=== PATIENT | female | born 1990 | race Caucasian/White ===

== ENCOUNTER 2018-10-30 20:11 | Inpatient (IN) ==
[2018-10-30] MEDS ORDERED: OXYTOCIN 30 UNITS/500 ML BAG IV PRN ×2 (21:06)
[2018-10-30] MEDS ORDERED: LACTATED RINGER'S 1,000 ML IV PRN ×2 (21:06)
[2018-10-30 21:25] LABS: Hemoglobin 11.9 g/dL (12.0-16.0); Mean Corpuscular Volume 98.1 fL (80-100); Mean Platelet Volume 12.2 fL (7.4-10.4); Platelet Count 192 K/uL (130-400); RDW Coefficient of Variation 12.9 % (11.5-14.5); RDW Standard Deviation 46.8 fL (36.4-46.3); Red Blood Count 3.67 M/uL (4.2-5.4); White Blood Count 7.54 K/uL (4.8-10.8)
[2018-10-30 21:46] LABS: Mean Corpuscular Hgb Conc 33.1 g/dL (32-36)
--- NOTE | 2018-10-30 22:32 | History and Physical Report ---
DATE OF ADMISSION: 10/30/2018 HISTORY OF PRESENT ILLNESS: Patient is a 28-year-old 1, para 0, due date 10/26/2018, making her 40 weeks and 4 today, who presented to labor and delivery with spontaneous rupture of membranes at 1900 hours. On arrival to labor and delivery, she had no shortness of breath, no chills, no fever. Patient is grossly ruptured, and amniotic fluid is clear. Bedside ultrasound shows cephalic presentation. She was examined and found to be 3 cm, 50% effaced, and -2. course has been unremarkable except for elevated amniotic fluid index of 28.6 on 10/27/2018. LABS: Blood type is A positive, antibody negative, rubella immune, GBS negative. PAST MEDICAL HISTORY: None. PAST SURGICAL HISTORY: Patient had cholecystectomy in the past. SOCIAL HISTORY: Patient denies tobacco, drug, or alcohol use. FAMILY HISTORY: Noncontributory. PHYSICAL EXAMINATION: GENERAL: Well-developed and well-nourished white female with spontaneous rupture of membrane. HEART: S1 and S2, regular rhythm and rate. RESPIRATORY: Lungs are clear to auscultation bilaterally. GASTROINTESTINAL: Abdomen is gravid. Bedside ultrasound shows cephalic presentation. PELVIC: Patient is 2-3 cm, 50% effaced, and -2. EXTREMITIES: No cyanosis, clubbing, edema. ASSESSMENT AND PLAN: A 28-year-old 1, para 0 at 40 and 4, term premature rupture of membranes. Patient has been admitted, anticipate vaginal delivery.
[2018-10-30] MEDS ORDERED: ePHEDrine sulfate 50 MG/ML AMP ONE (22:59)
[2018-10-30] MEDS ORDERED: BUPIVACAINE 0.25% 30 ML VIAL ONE (22:59)
[2018-10-30] MEDS ORDERED: fentaNYL citrate 100 MCG/2 ML VIAL ONE (23:00)
[2018-10-30] MEDS ORDERED: fentaNYL 2MCG/ML ROPIV 1.25MG/ML 100 ML BAG EPI ONE (23:01)
--- NOTE | 2018-10-30 23:37 | Anesthesiology Consultation ---
Date of Service October 30, 2018 Assessment & Plan Chart Review Chart Review: Acceptable Risk for Labor Epidural Consults Requested none ASA ASA2 Proposed Anesthesia Anesthesia Type: Labor Epidural Risk / Benefits Reviewed With: PT / POA / Parent / Guardian, Accepts Plan and Informed Consent Obtained NPO Date Last Intake of Fluids: 10/30/18 Time Last Intake of Fluids: 22:45 Date Last Intake of Solids: 10/30/18 Time Last Intake of Solids: 18:30 History Height/Weight Height: 1.6 m Weight: 69.039 kg Allergies Allergy/AdvReac Type Severity Reaction Status Date / Time No Known Allergies Allergy Unverified 10/30/18 21:13 Medications Home Medications Medication Instructions Recorded Confirmed Last Taken vit no.[id number] 1 tab PO DAILY 10/30/18 10/30/18 10/29/18 18:00 [ Vitamin] Active Medications Generic Name Dose Route Start Last Admin Trade Name Freq PRN Reason Stop Dose Admin Lactated Ringer's 1,000 mls @ 999 mls/hr 10/30/18 21:06 10/30/18 22:55 Lr IV 11/29/18 21:05 999 mls/hr .Q1H1M PRN Administration (Pre-Anesthesia) Oxytocin 30 units in 500 mls @ 2 mls/hr 10/30/18 21:06 10/30/18 23:28 Pitocin IV 11/29/18 21:05 0.12 units/hr .Q24H PRN 2 mls/hr Labor Induction/Augmentation Administration Protocol 0.12 UNITS/HR Past Medical History Medical History GERD (gastroesophageal reflux disease) Past Surgical History Surgical History S/P cholecystectomy Past Anesthesia History No Hx of Anesthesia Complications and No Family Hx of Anesthesia Complications History of PONV No Motion Sickness Screening History of Motion Sickness: No Social History Smoking Status: Never smoker Do You Dip or Chew Tobacco: No Hx Alcohol Use: No Hx Substance Use: No substance use type: does not use Exercise / Class Metabolic Activity II 4-5 Yardwork/Stairs/Walk up hill Physical Exam Vital Signs Last Vital Signs Temp 37.2 C 10/30/18 21:15 Pulse 80 10/30/18 23:38 Resp 16 10/30/18 21:15 BP 128/93 10/30/18 23:12 Pulse Ox 96 10/30/18 23:38 ENMT Mouth: no TMJ abnormality and no TMJ clicking Thyromental Distance: < 3.5 Finger Breadths Mallampati Class: II Mouth / Teeth: 2 1. Cracked Neck normal visual inspection; neck extension not limited Respiratory Auscultation: lungs clear to auscultation bilaterally Cardiovascular Rate/Rhythm: regular rate and regular rhythm Psychiatric Orientation: alert and oriented x 3 Testing Laboratory Results 10/30/18 21:16
[2018-10-31] MEDS: LACTATED RINGER'S 1,000 ML IV SCH ×2 (00:09→05:05)
[2018-10-31] MEDS ORDERED: ePHEDrine sulfate 50 MG/ML AMP IV PRN (00:10)
[2018-10-31] MEDS ORDERED: DiphenhydrAMINE HCL 50 MG/ML VIAL IV PRN (00:10)
[2018-10-31] MEDS ORDERED: NALBUPHINE HCL INJ 10 MG/ML AMP IV PRN (00:10)
[2018-10-31] MEDS ORDERED: fentaNYL 2MCG/ML ROPIV 1.25MG/ML 100 ML BAG EPI PRN (00:10)
[2018-10-31] MEDS ORDERED: NALOXONE HCL 1 MG in SODIUM CHLORIDE 0.9% 1000ML 1,000 ML IV PRN (00:10)
[2018-10-31] MEDS ORDERED: NALOXONE HCL 0.4 MG/1 ML VIAL/CARP IV PRN (00:10)
[2018-10-31] MEDS ORDERED: LACTATED RINGER'S 1,000 ML IV PRN (00:10)
[2018-10-31] MEDS ORDERED: PROMETHAZINE HCL 12.5 MG in SODIUM CHLORIDE 0.9% 50 ML IV PRN (00:10)
[2018-10-31] MEDS ORDERED: ONDANSETRON INJ 2 MG/ML 2 ML VIAL IV PRN (00:10)
--- NOTE | 2018-10-31 01:34 | Labor Progress Brief Note ---
Date of Service October 31, 2018 Pt doing well SROM - clear Ctx; 2-4mins FHR CAT1 Pit; 6Mu VE: 3-4/70/-2 Physical Exam 2 Vital Signs (Past 24 Hours): Last Vital Signs Temp 37.2 C 10/30/18 21:15 Pulse 63 10/31/18 01:28 Resp 16 10/30/18 21:15 BP 114/72 10/31/18 01:27 Pulse Ox 96 10/31/18 01:28
[2018-10-31] MEDS ORDERED: TERBUTALINE SULFATE 1 MG/ML VIAL SQ ONE (01:54)
--- NOTE | 2018-10-31 01:54 | Labor Progress Brief Note ---
Date of Service October 31, 2018 Called to room to evaluate pt with decel into the 70;s On arrival pt was on her left side, Pitocin was off and IVF bolus running VE; 6-7.No Umbilical cord palpated in the vagina Position changes done Oxygen given IM Turb. given FHR returned to baseline fetus successfully resuscitated Physical Exam 2 Vital Signs (Past 24 Hours): Last Vital Signs Temp 37.2 C 10/30/18 21:15 Pulse 96 H 10/31/18 01:48 Resp 16 10/30/18 21:15 BP 136/91 10/31/18 01:43 Pulse Ox 99 10/31/18 01:48
--- NOTE | 2018-10-31 06:40 | Labor Progress Brief Note ---
Date of Service October 31, 2018 Doing well SROM On Pitocin FHR; CAT1 Scalp electrode placed to differentiate FHR tracing from Maternal pulse Ox VE 10/100/0 station Pt will start pushing Physical Exam 2 Vital Signs (Past 24 Hours): Last Vital Signs Temp 37.0 C 10/31/18 05:13 Pulse 113 H 10/31/18 06:33 Resp 18 10/31/18 05:13 BP 118/83 10/31/18 06:28 Pulse Ox 97 10/31/18 06:33
[2018-10-31] MEDS ORDERED: METHYLERGONOVINE MALEATE 0.2 MG/ML AMP ONE (07:24)
[2018-10-31] MEDS ORDERED: OXYTOCIN 30 UNITS/500 ML BAG IV PRN (07:29)
[2018-10-31] MEDS ORDERED: HYDROCORTISONE ACETATE 25 MG SUPP PR PRN (07:29)
[2018-10-31] MEDS ORDERED: BENZOCAINE 20% AER SPR 82.5 GM CAN EXT PRN (07:29)
[2018-10-31] MEDS ORDERED: SUPERCREAM 0.870% 15 GM JAR EXT PRN (07:29)
[2018-10-31] MEDS ORDERED: DIPHTHERIA/TETANUS/PERTUSSIS 0.5 ML SYR/VIAL IM ONE (07:29)
[2018-10-31] MEDS ORDERED: IBUPROFEN 600 MG TAB PO PRN (07:29)
[2018-10-31] MEDS ORDERED: ACETAMINOPHEN 325 MG TAB PO PRN (07:29)
[2018-10-31] MEDS ORDERED: METHYLERGONOVINE MALEATE 0.2 MG/ML AMP IM PRN (07:38)
[2018-10-31] MEDS ORDERED: miSOPROStol 200 MCG TAB PR ONE ×2 (07:38→11:45)
--- NOTE | 2018-10-31 08:26 | Anesthesia Procedure Note ---
Date of Service October 31, 2018 Anesthesia Post Epidural Note Vital Signs Vital Signs: Temp Pulse Resp BP Pulse Ox 10/31/18 08:24 92 H 140/76 10/31/18 08:08 102 H 138/79 10/31/18 07:54 97 H 128/86 10/31/18 07:38 113 H 126/82 10/31/18 07:27 116 H 118/74 10/31/18 07:23 141 H 112/63 10/31/18 07:18 157 H 95 10/31/18 07:13 175 H 150/88 H 97 10/31/18 07:10 180 H 91 10/31/18 07:08 182 H 100 10/31/18 07:05 37.4 C 20 10/31/18 07:03 164 H 94 10/31/18 06:59 134 H 116/76 10/31/18 06:58 130 H 97 10/31/18 06:53 147 H 96 10/31/18 06:48 145 H 70 L 10/31/18 06:43 106 H 97 10/31/18 06:42 115 H 131/81 10/31/18 06:38 123 H 96 10/31/18 06:33 113 H 97 10/31/18 06:28 146 H 118/83 96 10/31/18 06:24 117 H 94 10/31/18 06:23 87 97 10/31/18 06:18 154 H 95 10/31/18 06:13 91 H 97 10/31/18 06:12 133 H 120/81 10/31/18 06:08 127 H 96 10/31/18 06:03 159 H 96 10/31/18 05:58 97 H 96 10/31/18 05:57 127 H 124/82 10/31/18 05:53 80 95 10/31/18 05:48 110 H 97 10/31/18 05:43 74 122/78 95 10/31/18 05:38 115 H 98 10/31/18 05:33 117 H 97 10/31/18 05:28 77 95 10/31/18 05:27 126 H 107/65 10/31/18 05:23 104 H 95 10/31/18 05:18 118 H 96 10/31/18 05:13 37.0 C 107 H 18 97 10/31/18 05:12 123 H 108/68 10/31/18 05:08 115 H 97 10/31/18 05:03 136 H 97 10/31/18 04:58 86 102/65 98 10/31/18 04:53 85 96 10/31/18 04:48 77 96 10/31/18 04:46 120 H 93 10/31/18 04:43 149 H 97 10/31/18 04:42 81 125/77 10/31/18 04:38 128 H 97 10/31/18 04:33 115 H 98 10/31/18 04:28 146 H 118/75 97 10/31/18 04:23 101 H 97 10/31/18 04:21 84 94 10/31/18 04:18 99 H 95 10/31/18 04:16 130 H 108/60 10/31/18 04:15 95 H 94 10/31/18 04:13 155 H 98 10/31/18 04:09 93 H 94 10/31/18 04:08 84 95 10/31/18 04:03 120 H 95 10/31/18 04:00 18 10/31/18 03:58 100 H 94 10/31/18 03:53 138 H 94 10/31/18 03:52 81 93 10/31/18 03:48 97 H 96 10/31/18 03:46 88 92 10/31/18 03:43 91 H 93 10/31/18 03:40 84 93 10/31/18 03:38 126 H 96 10/31/18 03:33 109 H 97 10/31/18 03:28 108 H 96 10/31/18 03:27 89 113/71 10/31/18 03:23 118 H 97 10/31/18 03:19 85 93 10/31/18 03:18 128 H 96 10/31/18 03:15 36.9 C 18 10/31/18 03:13 102 H 97 10/31/18 03:08 138 H 97 10/31/18 03:07 107 H 93 10/31/18 03:05 20 10/31/18 03:03 106 H 95 10/31/18 03:01 113 H 94 10/31/18 02:58 130 H 108/58 L 95 10/31/18 02:53 127 H 96 10/31/18 02:48 125 H 95 10/31/18 02:47 107 H 94 10/31/18 02:43 135 H 96 10/31/18 02:42 125 H 108/62 10/31/18 02:38 126 H 94 10/31/18 02:33 136 H 97 10/31/18 02:29 119 H 94 10/31/18 02:28 119 H 95 10/31/18 02:27 123 H 110/61 10/31/18 02:23 123 H 95 10/31/18 02:18 125 H 96 10/31/18 02:13 125 H 96 10/31/18 02:12 127 H 112/64 10/31/18 02:08 124 H 95 10/31/18 02:03 113 H 96 10/31/18 02:02 18 10/31/18 01:58 101 H 96 10/31/18 01:57 114 H 116/76 10/31/18 01:53 114 H 96 10/31/18 01:48 96 H 99 10/31/18 01:43 115 H 136/91 98 10/31/18 01:38 62 97 10/31/18 01:33 74 96 10/31/18 01:28 63 96 10/31/18 01:27 94 H 114/72 10/31/18 01:23 86 97 10/31/18 01:18 79 97 10/31/18 01:13 94 H 120/80 96 10/31/18 01:08 74 97 10/31/18 01:07 18 10/31/18 01:03 76 96 10/31/18 00:59 72 93 10/31/18 00:58 69 95 10/31/18 00:57 89 116/78 10/31/18 00:53 62 92 10/31/18 00:48 104 H 96 10/31/18 00:46 66 94 10/31/18 00:43 66 119/77 95 10/31/18 00:38 79 96 10/31/18 00:34 68 93 10/31/18 00:33 69 95 10/31/18 00:29 76 118/76 10/31/18 00:28 92 H 96 10/31/18 00:23 77 96 10/31/18 00:21 78 94 10/31/18 00:18 102 H 96 10/31/18 00:13 109 H 96 10/31/18 00:09 120 H 111/70 10/31/18 00:08 87 96 10/31/18 00:07 97 H 121/79 10/31/18 00:05 96 H 122/80 10/31/18 00:04 93 H 117/76 10/31/18 00:03 86 131/73 95 10/31/18 00:02 92 H 123/90 10/30/18 23:59 98 H 128/96 10/30/18 23:58 89 134/102 H 97 10/30/18 23:56 90 141/100 H 10/30/18 23:54 101 H 135/96 10/30/18 23:53 93 H 97 10/30/18 23:52 83 134/95 10/30/18 23:49 85 152/95 H 10/30/18 23:48 86 96 10/30/18 23:43 87 138/98 97 10/30/18 23:38 80 96 10/30/18 23:12 102 H 128/93 10/30/18 23:09 78 132/95 10/30/18 21:19 97 H 132/89 10/30/18 21:15 37.2 C 16 10/30/18 20:15 36.8 C 112 H 18 133/85 Notes Mental Status: alert / awake / arousable and participated in evaluation Nausea / Vomiting: adequately controlled Pain: adequately controlled Airway Patency, RR, SpO2: stable & adequate BP & HR: stable & adequate Hydration State: stable & adequate Neuraxial Anesthesia: was administered and sensory block is resolving Anesthetic Complications: no major complications apparent and Pt Satisfied with anesthetic care Epidural: Removed without complications and With tip intact
[2018-10-31] MEDS ORDERED: PRENATAL VITAMIN 1 TAB PO SCH (09:00)
--- NOTE | 2018-10-31 09:56 | Delivery Summary ---
DATE OF OPERATION: 10/31/2018 The patient delivered a live infant female in left occiput anterior presentation. Infant was delivered and placed on mother's abdomen. Cord was clamped and cut after 1 minute. Infant's weight and Apgars are in the pediatric record. Placenta was spontaneously delivered. Inspection of the placenta showed grossly normal placenta with 3-vessel cord. Inspection of the perineum showed a first-degree midline laceration, which was repaired with 2-0 Vicryl. Rectal exam post repair showed good sphincter tone. ESTIMATED BLOOD LOSS: 600 mL All instruments were removed from the vagina and accounted for x2 including sponges, needles and retractors. Baby and mother are doing well in recovery. I attest to the content of the Intraoperative Record and any orders documented therein. Any exception s are noted below.
[2018-10-31] MEDS: PRENATAL VITAMIN 1 TAB PO SCH (18:33)
[2018-10-31] MEDS: FERROUS SULFATE 325 MG TAB PO SCH (18:34)
[2018-10-31] MEDS: DOCUSATE SODIUM 100 MG CAP PO SCH ×2 (18:34→20:44)
[2018-11-01 07:01] LABS: Hematocrit (blood only) 32.8 % (37-47); Hemoglobin 10.8 g/dL (12.0-16.0); Mean Corpuscular Hgb Conc 32.9 g/dL (32-36); Mean Corpuscular Volume 98.2 fL (80-100); Mean Platelet Volume 11.5 fL (7.4-10.4); Platelet Count 148 K/uL (130-400); RDW Coefficient of Variation 13.2 % (11.5-14.5); RDW Standard Deviation 47.5 fL (36.4-46.3); Red Blood Count 3.34 M/uL (4.2-5.4); White Blood Count 9.82 K/uL (4.8-10.8)
[2018-11-01] MEDS: FERROUS SULFATE 325 MG TAB PO SCH (08:45)
[2018-11-01] MEDS: DOCUSATE SODIUM 100 MG CAP PO SCH ×2 (08:45→20:50)
[2018-11-01] MEDS: PRENATAL VITAMIN 1 TAB PO SCH (08:45)
--- NOTE | 2018-11-01 10:02 | Obstetrical Progress Note ---
Date of Service November 01, 2018 Subjective Patient is seen and examined. She feels well, no complaints. Ambulating without dizziness Voiding without difficulty Tolerating regular diet with out N&V Bleeding is minimal No fever/ chills/ CP/ SOB/ N&V/ Leg pain Breast feeding without problems Vital Signs Temp Pulse Pulse Pulse Resp BP BP 11/01/18 08:00 36.4 C L 64 16 130/82 11/01/18 04:30 36.5 C 56 L 18 113/74 10/31/18 23:15 36.8 C 52 L 18 113/70 10/31/18 19:25 36.4 C L 67 18 110/73 10/31/18 16:30 36.5 C 60 16 126/80 10/31/18 12:15 36.6 C 79 16 10/31/18 11:17 56 L 135/88 10/31/18 11:15 36.7 C 18 BP Pulse Ox 11/01/18 08:00 97 11/01/18 04:30 10/31/18 23:15 10/31/18 19:25 97 10/31/18 16:30 98 10/31/18 12:15 127/87 99 10/31/18 11:17 10/31/18 11:15 Lab Results 10/30/18 11/01/18 Range/Units 21:16 06:44 WBC 7.54 9.82 (4.8-10.8) K/uL RBC 3.67 L 3.34 L (4.2-5.4) M/uL Hgb 11.9 L 10.8 L (12.0-16.0) g/dL Hct 36.0 L 32.8 L (37-47) % MCV 98.1 98.2 (80-100) fL MCH 32.4 32.3 (25-34) pg MCHC 33.1 32.9 (32-36) g/dL RDW Std Deviation 46.8 H 47.5 H (36.4-46.3) fL RDW Coeff of Cj 12.9 13.2 (11.5-14.5) % Plt Count 192 148 (130-400) K/uL MPV 12.2 H 11.5 H (7.4-10.4) fL PE: General: Alert, orientedx3, NAD Abd: soft, NT, fundus firm, below Umbilicus Perineum intact, Lochia rubra minimal Ext; NT, no edema AP: 28 yo s/p , ppd# 1 VSS Afebrile doing well Continue routine care All questions were answered D/C home tomorrow Physical Exam 2 Vital Signs (Past 24 Hours): Last Vital Signs Temp 36.4 C L 11/01/18 08:00 Pulse 64 11/01/18 08:00 Resp 16 11/01/18 08:00 BP 130/82 11/01/18 08:00 Pulse Ox 97 11/01/18 08:00
[2018-11-01] MEDS ORDERED: BISACODYL 5 MG TABEC PO SCH (20:00)
[2018-11-01 21:59] VITALS: O2SAT 98
[2018-11-02] MEDS ORDERED: BISACODYL 10 MG SUPP PR PRN (06:00)
--- NOTE | 2018-11-02 08:22 | Obstetrical Progress Note ---
Date of Service November 02, 2018 Subjective doing fine plans to go home Physical Exam 2 Vital Signs (Past 24 Hours): Last Vital Signs Temp 36.5 C 11/02/18 00:05 Pulse 59 L 11/02/18 00:05 Resp 17 11/02/18 00:05 BP 133/85 11/02/18 00:05 Pulse Ox 98 11/02/18 00:05 Constitutional: WD/WN, vitals as above comfortable abdomen soft non-tender fundus firm no edema Neg Brandon's for discharge
[2018-11-02 08:28] LABS: Hematocrit (blood only) 35.1 % (37-47); Hemoglobin 11.6 g/dL (12.0-16.0)
[2018-11-02] MEDS: FERROUS SULFATE 325 MG TAB PO SCH (08:59)
[2018-11-02] MEDS: PRENATAL VITAMIN 1 TAB PO SCH (08:59)
[2018-11-02] MEDS: DOCUSATE SODIUM 100 MG CAP PO SCH (08:59)
[2018-11-02 09:34] VITALS: BP 140/87; PULSE 54; TEMP 98.1
== END 2018-11-02 12:15 | disposition home or self-care (01) | DRG 807 ==
LOC: OPB 20:11 → 4S1 20:17 → 4S2 10-31 11:57
DX: O70.0 First degree perineal laceration during delivery; Z3A.40 40 weeks gestation of pregnancy; O48.0 Post-term pregnancy; Z37.0 Single live birth